=== PATIENT | male | born 1935 | race Caucasian/White ===

== ENCOUNTER 2017-11-11 11:56 | Inpatient (IN) | payer OTHER, MEDICAID ==
[2017-11-11] MEDS ORDERED: HEPARIN 10,000 UNIT/10 ML MDV (1,000 UNIT/ML) IVP ONE (13:41)
[2017-11-11] MEDS ORDERED: HEPARIN 10,000 UNIT/10 ML MDV (1,000 UNIT/ML) IVP PRN (13:41)
[2017-11-11] MEDS ORDERED: ACETAMINOPHEN 325 MG TAB PO PRN ×2 (13:42→15:34)
[2017-11-11] MEDS ORDERED: DILTIAZEM 125 MG in D5W 125 ML IV SCH (13:45)
[2017-11-11] MEDS ORDERED: TRIAMCINOLONE 0.1% 15 GM CRTUBE TP PRN (14:52)
[2017-11-11] MEDS ORDERED: TRAMADOL HCL PO PRN (14:52)
[2017-11-11] MEDS ORDERED: ACETAMINOPHEN PO PRN (14:52)
[2017-11-11] MEDS ORDERED: [UNRECOGNIZED DRUG - OTHER] PO PRN (14:52)
[2017-11-11] MEDS ORDERED: MECLIZINE HCL 12.5 MG TAB PO PRN (14:52)
[2017-11-11] MEDS ORDERED: FUROSEMIDE 20 MG/2 ML VIAL IVP ONE (14:53)
--- NOTE | 2017-11-11 15:12 | PDCARPN ---
Cardiology Progress Note Chief Complaint: AF RVR/CHF Assessment/Plan: Assessment: 82M PMH htn, CKD, hypoT, direct admit from office. Please see Dr. Liang's office note that acts as H&P (see chart). #. AF RVR: start Dilt for rate control [id number] of 3 (age and htn) start Heparin and discuss OAC choices in next days #. CHF: ? from RVR/ awaiting echo for EF assessment dose with Lasix IV once now #. CKD: last Cr measured at 1.5 recheck now #. hypoT: recent dx check TSH now #. DVTppx: hep gtt #. Diet: cardiac #. LOS: inpt for CHF management 11/11/17 14:54 Subjective: Reports dyspnea/edema. Objective: Vital Signs (8 Hrs) Temp Pulse Resp BP Pulse Ox 11/11/17 13:59 98.1 F 105 H 16 125/99 H 98 - Physical Exam Cardiovascular: irregularly irregular Respiratory: reduced air movement Gastrointestinal: normoactive bowel sounds, no tenderness Skin: other (1+ edema) ICD10 Worksheet Patient Problems: Problems Problem Status Onset Afib Acute CHF (congestive heart failure) Acute
[2017-11-11 15:16] LABS: PLATELET COUNT 269 10^3/uL (150-400)
[2017-11-11 15:31] LABS: PROTIME(PATIENT) 14.4 SEC (12.0-15.0)
[2017-11-11] MEDS ORDERED: traMADol 50 MG TAB PO PRN (15:34)
[2017-11-11] MEDS: HEPARIN/DEXTROSE 500 ML IV SCH (15:42)
--- NOTE | 2017-11-11 16:04 | ECHO ---
[email or web address] [address] [address] Main: [phone] Fax: Transthoracic Echocardiogram Name: MAGDI WOODS MR#: [id number] Study Date: 11/11/2017 Study Time: 02:02 PM Date of : 1935 Age: 82 year(s) Height: 162.6 cm (64 in.) Weight: 62.6 kg (138 lb.) BSA: 1.67 m2 Gender: Male Examination: Echo Indication: CHF Image Quality: Contrast: Requested by: Edna Palmer BP: 125 mmHg/99 mmHg Heart Rate: Rhythm: Indication: CHF Procedure Staff Flower Picker: Felicia Clarke Physician: Jay Laguerre Requesting Provider: Conclusions: Normal size left ventricle. No LV hypertrophy. Normal global systolic LV function. The ejection fraction is estimated to be 55-60 %. Mild mitral valve regurgitation is present. Mild aortic valve regurgitation is present. Mild tricuspid regurgitation is present. Trivial pulmonic valve regurgitation. Mildly dilated aortic root measuring 4.2 cm. Measurements: Chambers Valvular Assessment AV/MV Valvular Assessment TV/PV Normal Normal Normal Name Value Range Name Value Range Name Value Range Ao Jennifer (MM): 4.2 cm (2.2 cm-3.7 AV Vmax: 1.01 m/s (1 m/s-1.7 TR Vmax: 2.40 mm/s ( - ) cm) m/s) TR PGmax: 23 mmHg ( - ) IVSd (2D): 0.9 cm (0.6 cm-1.1 AV maxP mmHg ( - ) syst. PAP: 28 mmHg ( - ) cm) AR (PHT): 533 ms ( - ) LVDd (2D): 4.3 cm (4.2 cm-5.9 MV E Vmax: 1.17 m/s ( - ) cm) MV A Vmax: 0.34 m/s ( - ) LVDs (2D): 3.1 cm (2.1 cm-4 MV E/A: 3.44 ( - ) cm) LVPWd (2D): 0.8 cm (0.6 cm-1 cm) LVEF (MOD4): 64 % (>=55 %) EF Range: 55-60 % Continued Measurements: Chambers Valvular Assessment AV/MV Valvular Assessment TV/PV Patient: MAGDI WOODS Study Date: 11/11/2017 Page 1 of 2 02:02 PM Name Value Name Value Name Value LADs: 4.3 cm MV E' Septal: 0.08 m/s CVP (est.): 5 mmHg LADs Lon.3 cm MV E/E' Septal: 15.40 LA Area: 13.5 cm2 MV E/E' Lateral: 13.50 AR Vmax: 4.19 cm/s Additional Vessels Name Value Ao Ascendin.6 cm Findings: Left Ventricle: Normal size left ventricle. No LV hypertrophy. Normal global systolic LV function. The ejection fraction is estimated to be 55-60 %. No regional wall motion abnormality. Right Ventricle: Normal size right ventricle. Left Atrium: The left atrium is normal in size. Right Atrium: The right atrium is normal in size. Mitral Valve: The mitral valve is normal in appearance and function. Mild mitral valve regurgitation is present. Aortic Valve: The aortic valve is normal in appearance and function. Mild aortic valve regurgitation is present. Tricuspid Valve: The tricuspid valve is normal in appearance and function. Mild tricuspid regurgitation is present. Pulmonic Valve: Pulmonary valve not well visualized. Trivial pulmonic valve regurgitation. Aorta: The aorta is normal. Mildly dilated aortic root measuring 4.2 cm. Normal size ascending aorta measuring 3.6 cm. Pericardium: No pericardial effusion. (No Signature Object) Patient: MAGDI WOODS Study Date: 11/11/2017 Page 2 of 2 02:02 PM [id number]
[2017-11-11] MEDS ORDERED: FAMOTIDINE 20 MG TAB PO PRN (21:00)
[2017-11-11] MEDS: TEMAZEPAM 15 MG CAP PO PRN (23:33)
[2017-11-12] MEDS: LEVOTHYROXINE 175 MCG TAB PO SCH (05:56)
--- NOTE | 2017-11-12 09:44 | ASMTCASEMG ---
Living Arrangements What is your living Answers: With Child(harshil) arrangement? Who do you live with? Type Of Residence What kind of residence do Answers: House you live in? Discharge Plan Comments Coordination Status Comments Notes: Pt is a 82 y/o man admitted for CHF/AFIB. Pt lives at home w/ his daughter, son in law and . Pt has been falling more frequently. Therapies have not been ordered at this time. CM spoke w/ RAFI Bishop and requested that therapies be ordered. Needs are TBD at this time. CM to follow. Plan: TBD Date Signed: 11/12/2017 09:43 AM Electronically Signed By:LIBIA Hwang
[2017-11-12] MEDS: VITAMIN B COMPLEX 1 EA CAP/TAB PO SCH (10:19)
[2017-11-12] MEDS: TAMSULOSIN HCL 0.4 MG CAP PO SCH (10:19)
[2017-11-12] MEDS ORDERED: BISACODYL 10 MG SUPP PR PRN (15:52)
[2017-11-12] MEDS ORDERED: LACTULOSE 20 GM/30 ML UDCUP PO PRN (15:52)
[2017-11-12] MEDS ORDERED: MAGNESIUM HYDROXIDE 30 ML UDCUP PO PRN (15:52)
[2017-11-12] MEDS: POLYETHYLENE GLYCOL 3350 17 GM PKT PO PRN (17:09)
[2017-11-12] MEDS ORDERED: AMIODARONE HCL 200 ML IV ONE (17:16)
[2017-11-12] MEDS ORDERED: AMIODARONE HCL 100 ML IV ONE (17:16)
[2017-11-12] MEDS: HEPARIN/DEXTROSE 500 ML IV SCH (18:13)
--- NOTE | 2017-11-12 18:54 | PDCARPN ---
Cardiology Progress Note Chief Complaint: I am not feeling very well. Assessment/Plan: Assessment: Newly recognized and paroxysmal atrial fibrillation. The patient was placed on rate control with cardizem and converted to sinus rhythm while on Heparin drip which is therapeutic. He has by definition paroxysmal atrial fibrillation with a CHADS VASC score of at least 5 on the basis of age heart failure and diastolic dysfunction. He has been falling frequently so chronic anticoagulation will need to be considered carefully possibly with an agent that can be reversed in the event of head trauma and bleeding such as Coumadin or Pradaxa. I agree with diuresis for peripheral edema, but would like to load him with amiodarone to try to achieve normal rhythm. He could be considered for less toxic medications [facility] depending on how he does. I am hopeful he will convert on the Amiodarone overnight. His ejection fraction is normal presently. Plan: as above. the plan was discussed with the patient via the official biomedical engineering technologist device. 11/12/17 18:49 Subjective: How long do I have to stay here? Reviewed/Discussed With: family, multidisciplinary team Time Spent With Patient: 30 minutes over half of which was spent in counseling and discussing plan with patient and son in law. Objective: Vital Signs (8 Hrs) Temp Pulse Resp BP Pulse Ox 11/12/17 15:51 36.7 C 118 H 18 116/85 H 98 11/12/17 12:03 36.8 C 94 19 148/97 H 99 Intake/Output (24 Hrs) 11/11/17 11/12/17 11/13/17 05:59 05:59 05:59 Intake Total 500 883 Output Total 2000 700 Balance -1500 183 Intake: Oral (ml) 500 IV Infused (ml) 883 Amiodarone HCl 100 ml @ 100 600 mls/hr IV ONCE ONE Rx #:[id number] Diltiazem 125 mg In D5w 10 125 ml @ Per Protocol IV CONT RAMOS Rx#:[id number] Heparin/Dextrose 500 ml @ 773 Per Protocol IV CONT RAMOS Rx#:[id number] Output: Urine (ml) 2000 700 Bedside Commode 1100 700 Catheter 900 Other: Weight 63 kg Number of Voids Bedside Commode 1 Incontinence 3 Result Diagrams: 11/11/17 15:00 11/12/17 05:58 Cardiac Labs: Cardiac Lab Results (72 Hrs) 11/11/17 15:00 Troponin I < 0.012 EKG: A fib with RVR. Telemetry: a fib goes to sinus rhythm and then a fib Echocardiogram: normal ef age appropriate valve issues.... p[lease see full report as dictated by Carlotta. - Physical Exam Constitutional: no apparent distress Eyes: EOMI, anicteric sclera, No pale conjunctiva Ears, Nose, Mouth, Throat: moist mucous membranes Cardiovascular: systolic murmur, irregularly irregular, jugular vein distention , pulses symmetric bilat, other (2 plus peripheral edema with some erythema...) , No carotid bruit Respiratory: inspiratory crackles, No expiratory wheeze, No bronchial breath sounds, No aegophony, No dullness to percussion Gastrointestinal: normoactive bowel sounds, no tenderness, No ascites Skin: no rashes Neurologic: AAOx3 Psychiatric: cooperative, interactive, following commands - . Pending Discharge Within 24 Hours: No ICD10 Worksheet Patient Problems: Problems Problem Status Onset Afib Acute CHF (congestive heart failure) Acute
[2017-11-12] MEDS: SENNOSIDES/DOCUSATE SODIUM TAB PO SCH (21:47)
[2017-11-13] MEDS ORDERED: AMIODARONE HCL 540 MG in D5W 300 ML IV ONE
[2017-11-13] MEDS: LEVOTHYROXINE 175 MCG TAB PO SCH (06:07)
[2017-11-13] MEDS ORDERED: FUROSEMIDE 20 MG/2 ML VIAL IVP SCH (09:00)
--- NOTE | 2017-11-13 10:46 | PDCARPN ---
Cardiology Progress Note Assessment/Plan: Assessment/plan: 82-year-old male with history of hypertension and hypothyroidism. He was admitted directly from our office on November 11 with heart failure and atrial fibrillation. He has diuresed with IV Lasix and was initially on diltiazem but now on amiodarone. He is currently in sinus rhythm. Heparin drip has been initiated. Ejection fraction is normal. 1. Paroxysmal atrial fibrillation: Currently finishing IV amiodarone load. We will start low-dose amiodarone at 200 mg twice daily once his IV load is complete. If he does stay on amiodarone will need to be enrolled in surveillance program through our office. He will work with physical therapy today, to better assess his fall risk. His family was not present in the room today, but there should be discussion with them about fall risk/bleeding versus thromboembolic risk associated with paroxysmal atrial fibrillation. His CHADS2 Vasc score is at least 4. At this point I have initiated warfarin and will continue his heparin until his warfarin is therapeutic. 2. Heart failure with preserved ejection fraction: BNP has come down nicely from 1420 to 704. He does have some mild ankle edema but otherwise appears euvolemic. Heart failure was likely triggered by atrial fibrillation. Troponin negative. We will transition to low-dose oral Lasix tomorrow. 3. Chronic renal insufficiency. His creatinine bumped a little bit to 1.4. Transition to oral diuretics as detailed above. 4. Hypothyroidism: TSH this admission is normal. 5. Hypertension: Currently well controlled. 6. Mild valvular heart disease: This is unlikely contributing to his heart failure. 7. Dilated aortic root of 4.2 cm. This will be followed as an outpatient. Greater than 30 min was spent in chart review, direct patient care. 11/13/17 10:50 Subjective: He says his breathing is okay. He denies chest pain. He states he feels tired. He denies falling at home, but per chart review he does have a risk of falls. He states that he uses a walker at home. Objective: Vital Signs (8 Hrs) Temp Pulse Resp BP Pulse Ox 11/13/17 08:00 36.5 C 86 15 144/76 H 98 11/13/17 03:46 36.5 C 77 22 H 145/77 H 95 Intake/Output (24 Hrs) 11/12/17 11/13/17 11/14/17 05:59 05:59 05:59 Intake Total 500 1471 Output Total 1999 1250 150 Balance -1500 221 -150 Intake: Oral (ml) 500 100 IV Infused (ml) 1371 Amiodarone HCl 100 ml @ 386 600 mls/hr IV ONCE ONE Rx #:[id number] Diltiazem 125 mg In D5w 10 125 ml @ Per Protocol IV CONT RAMOS Rx#:[id number] Heparin/Dextrose 500 ml @ 975 Per Protocol IV CONT RAMOS Rx#:[id number] Output: Urine (ml) 1999 1250 150 Bedside Commode 1100 1100 150 Catheter 900 Urinal 150 Other: Weight 63 kg 62.2 kg Number of Voids Bedside Commode 1 Incontinence 3 1 No acute distress. Sitting up in chair. Slightly sleepy. JVP less than 10 cm water the patient at 90 degrees. Regular rate and rhythm without murmur rub or gallop Lungs clear bilaterally wheeze rhonchi or rales 1+ ankle edema bilaterally Result Diagrams: 11/13/17 03:26 11/13/17 03:26 Cardiac Labs: Cardiac Lab Results (72 Hrs) 11/11/17 15:00 Troponin I < 0.012 Telemetry: Sinus rhythm with PACs. ICD10 Worksheet Patient Problems: Problems Problem Status Onset Afib Acute CHF (congestive heart failure) Acute
[2017-11-13] MEDS: SENNOSIDES/DOCUSATE SODIUM TAB PO SCH ×2 (10:48→22:27)
[2017-11-13] MEDS: TAMSULOSIN HCL 0.4 MG CAP PO SCH (10:48)
[2017-11-13] MEDS: VITAMIN B COMPLEX 1 EA CAP/TAB PO SCH (10:48)
[2017-11-13] MEDS ORDERED: ERGOCALCIFEROL 50,000 I.UNIT CAP PO SCH (14:52)
[2017-11-13] MEDS: WARFARIN SODIUM 5 MG TAB PO SCH (16:30)
[2017-11-13] MEDS: AMIODARONE HCL 200 MG TAB PO SCH (22:27)
[2017-11-13] MEDS: TEMAZEPAM 15 MG CAP PO PRN (22:27)
[2017-11-14] MEDS ORDERED: AMIODARONE A.FIB-18HR INFSN (ORDER 3/3) IV ONE (04:00)
[2017-11-14 04:50] LABS: INR 1.19 (0.83-1.16); PROTIME(PATIENT) 15.3 SEC (12.0-15.0)
--- NOTE | 2017-11-14 06:03 | CPEKG ---
Heart Rate: 72 RR Interval: 833 P-R Interval: 196 QRSD Interval: 78 QT Interval: 448 QTC Interval: 491 P [place]: 63 QRS [place]: 19 T Wave [place]: 146 EKG Severity - ABNORMAL ECG - EKG Impression: SINUS RHYTHM EKG Impression: ATRIAL PREMATURE COMPLEX EKG Impression: NONSPECIFIC T ABNORMALITIES, ANT-LAT LEADS EKG Impression: BORDERLINE PROLONGED QT INTERVAL Electronically Signed By: Lenny Ferris 14-Nov-2017 08:50:24
[2017-11-14] MEDS: LEVOTHYROXINE 175 MCG TAB PO SCH (07:46)
[2017-11-14] MEDS: VITAMIN B COMPLEX 1 EA CAP/TAB PO SCH (09:55)
[2017-11-14] MEDS: FUROSEMIDE 40 MG TAB PO SCH (09:55)
[2017-11-14] MEDS: AMIODARONE HCL 200 MG TAB PO SCH ×2 (09:56→21:11)
[2017-11-14] MEDS: TAMSULOSIN HCL 0.4 MG CAP PO SCH (09:56)
[2017-11-14] MEDS: SENNOSIDES/DOCUSATE SODIUM TAB PO SCH ×2 (09:56→21:12)
[2017-11-14] MEDS ORDERED: AMIODARONE A.FIB-LOAD DOSE(ORDER 1/3) PREMIX IV ONE ×3 (11:00→22:00)
--- NOTE | 2017-11-14 13:34 | CPEKG ---
Heart Rate: 70 RR Interval: 857 P-R Interval: 156 QRSD Interval: 84 QT Interval: 448 QTC Interval: 484 P [place]: 78 QRS [place]: 6 T Wave [place]: 131 EKG Severity - ABNORMAL ECG - EKG Impression: SINUS RHYTHM EKG Impression: ABNORMAL T, CONSIDER ISCHEMIA, LATERAL LEADS EKG Impression: BORDERLINE PROLONGED QT INTERVAL Electronically Signed By: Lenny Ferris 15-Nov-2017 04:30:31
--- NOTE | 2017-11-14 13:38 | PDCARPN ---
Cardiology Progress Note Assessment/Plan: Assessment: 82-year-old male with history of hypertension and hypothyroidism. He was admitted directly from our office on November 11 with heart failure and atrial fibrillation. He has diuresed with IV Lasix and was initially on diltiazem but now on amiodarone. He is currently in sinus rhythm. Heparin drip has been initiated. Ejection fraction is normal. 1. Paroxysmal atrial fibrillation: Back in A fib today with RVR Additional 2 doses of IV amiodarone given with subsequent conversion. Continue oral Amiodarone at 200 mg twice daily for now. If he does stay on amiodarone will need to be enrolled in surveillance program through our office. He will work with physical therapy today, to better assess his fall risk. His family was not present in the room today, but there should be discussion with them about fall risk/bleeding versus thromboembolic risk associated with paroxysmal atrial fibrillation. His CHADS2 Vasc score is at least 4/5. At this point I have initiated warfarin and will continue his heparin until his warfarin is therapeutic. 2. Heart failure with preserved ejection fraction: BNP has come down nicely from 1420 to 704. He does have some mild ankle edema but otherwise appears euvolemic. Heart failure was likely triggered by atrial fibrillation. Troponin negative. We will transition to low-dose oral Lasix today. 3. Chronic renal insufficiency. His creatinine bumped a little bit to 1.4. Transition to oral diuretics as detailed above. 4. Hypothyroidism: TSH this admission is normal. 5. Hypertension: Currently well controlled. 6. Mild valvular heart disease: This is unlikely contributing to his heart failure. 7. Dilated aortic root of 4.2 cm. This will need to be followed as an outpatient. Greater than 30 min was spent in chart review, direct patient care, discussion with nurse and son. 11/14/17 13:20 Reviewed/Discussed With: family, multidisciplinary team, other (son) Objective: Vital Signs (8 Hrs) Temp Pulse Resp BP Pulse Ox 11/14/17 07:36 36.6 C 73 12 156/90 H 92 Intake/Output (24 Hrs) 11/13/17 11/14/17 11/15/17 05:59 05:59 05:59 Intake Total 1471 550 200 Output Total 1250 1750 200 Balance 221 -1200 0 Intake: Oral (ml) 100 250 IV Infused (ml) 1371 300 200 Amiodarone HCl 100 ml @ 386 600 mls/hr IV ONCE ONE Rx #:[id number] Amiodarone HCl 100 ml @ 100 600 mls/hr IV ONCE ONE Rx #:[id number] Amiodarone HCl 100 ml @ 100 600 mls/hr IV ONCE ONE Rx #:[id number] Amiodarone HCl 540 mg In 300 D5w 300 ml @ 16.667 mls/ hr IV ONCE ONE Rx#: [id number] Diltiazem 125 mg In D5w 10 125 ml @ Per Protocol IV CONT RAMOS Rx#:[id number] Heparin/Dextrose 500 ml @ 975 Per Protocol IV CONT RAMOS Rx#:[id number] Output: Urine (ml) 1250 1750 200 Bedside Commode 1100 1050 200 Urinal 150 700 Other: Weight 62.2 kg 58.513 kg Intake Quantity Yes Sufficient Number of Voids Bedside Commode 1 2 4 Incontinence 1 1 Urinal 3 Number of Stools Urinal 2 Result Diagrams: 11/13/17 03:26 11/14/17 03:29 Cardiac Labs: Cardiac Lab Results (72 Hrs) 11/11/17 15:00 Troponin I < 0.012 Telemetry: afib with RVR and then sinus rhythm Echocardiogram: Previously reviewed see official result - Physical Exam Constitutional: no apparent distress Eyes: PERRL, EOMI, No anicteric sclera Cardiovascular: irregularly irregular Respiratory: no crackles Gastrointestinal: normoactive bowel sounds, no tenderness, no masses Skin: other (edema mild at ankle level likely best ddescribed as 1+) ICD10 Worksheet Patient Problems: Problems Problem Status Onset Afib Acute CHF (congestive heart failure) Acute
[2017-11-14] MEDS: WARFARIN SODIUM 5 MG TAB PO SCH (17:32)
[2017-11-14] MEDS: POLYETHYLENE GLYCOL 3350 17 GM PKT PO PRN (21:11)
[2017-11-14] MEDS: TEMAZEPAM 15 MG CAP PO PRN (21:12)
[2017-11-14] MEDS ORDERED: AMIODARONE A.FIB-6HR INFSN (ORDER 2/3) PREMIX IV ONE (22:00)
[2017-11-15 03:16] LABS: INR 1.26 (0.83-1.16)
[2017-11-15] MEDS ORDERED: AMIODARONE A.FIB-18HR INFSN (ORDER 3/3) IV ONE (04:00)
[2017-11-15] MEDS: LEVOTHYROXINE 175 MCG TAB PO SCH (04:19)
[2017-11-15] MEDS: HEPARIN/DEXTROSE 500 ML IV SCH (09:46)
[2017-11-15] MEDS: SENNOSIDES/DOCUSATE SODIUM TAB PO SCH ×2 (09:46→20:19)
[2017-11-15] MEDS: AMIODARONE HCL 200 MG TAB PO SCH ×2 (09:46→20:19)
[2017-11-15] MEDS: FUROSEMIDE 40 MG TAB PO SCH (09:46)
[2017-11-15] MEDS: TAMSULOSIN HCL 0.4 MG CAP PO SCH (09:47)
[2017-11-15] MEDS: VITAMIN B COMPLEX 1 EA CAP/TAB PO SCH (09:48)
[2017-11-15] MEDS ORDERED: FUROSEMIDE 20 MG TAB PO ONE (11:37)
[2017-11-15] MEDS ORDERED: FAMOTIDINE 20 MG TAB PO PRN (12:00)
[2017-11-15] MEDS ORDERED: PNEUMOC 13-VAL CONJ-DIP CRM/PF 0.5 ML SYR IM ONE (12:12)
[2017-11-15] MEDS ORDERED: POTASSIUM CL 20 MEQ TAB PO ONE (15:45)
--- NOTE | 2017-11-15 16:39 | ASMTCMCOM ---
CM Note CM Note Notes: Spoke with patient's son in law Tiffany about recommendations for home care. He is amenable to this and feels it's very important. Someone from the family will be with patient 24/05 after discharge. I called and left a message for [facility] referring patient for RN/PT/OT. Date Signed: 11/15/2017 04:38 PM Electronically Signed By:Kennedi Ball RN
--- NOTE | 2017-11-15 16:50 | PDCARPN ---
Cardiology Progress Note Chief Complaint: Patient reports he would like to go home. Assessment/Plan: Assessment: 82-year-old male with history of hypertension and hypothyroidism. Direct admit from our office on 11/11/2017 with heart failure in atrial fibrillation. Initially IV diuresed, and has been transitioned over to oral Lasix 11/12/2017. Persistent atrial fibrillation, attempted initially on diltiazem, but transition to amiodarone. Heparin drip initiated for anticoagulation. Echo done on 11/11/2017 showing normal LV global systolic function, EF 55-60%, mild MR , mild AI, mild TR, trivial [place], mildly dilated aortic root measuring at 4.2 cm. Today, patient's weight is up despite output greater than input. Laboratory studies showing decreased sodium of 131, potassium 3.7, chloride 96, CO2 21, INR 1.26. JVD 4-5 cm noted on physical examination, no rales noted in bases. Patient noted to have breakthrough atrial fibrillation last evening, started on full IV amiodarone drip protocol, converted soon afterwards back to sinus rhythm. No malignant arrhythmias noted on monitoring. Patient denies of any chest pain or pressure. Continues to feel weak, but improvement in shortness of breath. Plan: 1. Paroxysmal atrial fibrillation: Currently in sinus rhythm , IV amiodarone completed, continue on oral dosing of amiodarone 200 mg p. o. twice daily for the next week. Discussed with his son-in-law anticoagulation therapy in the risk. They verbalize understanding. Patient does have a significant chads Vasc score of 4, remains on IV heparin with plans of discontinue in once his INRs reach therapeutic, has been started on warfarin therapy. 2. Diastolic heart failure: BMP has significantly reduced since with maintaining sinus rhythm , night IV diuresis. Appears to be more fluid overloaded today, changed his oral dosage of Lasix to 60 mg. Repeat BMP in a.m.. Potassium supplement given. 3. Chronic renal insufficiency: Maintaining between 1.3 and 1.4 for during this hospitalization. 4. Hypothyroidism: TSH within normal limits. Continue on home dosage of Synthroid. 5. Valvular heart disease: Mild on recent echocardiogram. Medication management as above. 6. Hypertension: Mildly elevated, recent discontinuation of home losartan, if renal function remained stable, consideration restarting tomorrow. Continue to monitor. 7. Dilated aortic root at 4.2 cm. Patient will need a repeated limited echocardiogram in 6 months time for repeat evaluation. 8. Hyponatremia: Sodium low at 131, fluid restriction in the setting of heart failure. 8. DVT prophylaxis: Patient is on heparin drip , been started on warfarin. 11/15/17 16:49 Subjective: Patient denies of any chest pain, palpitations, lightheadedness, near-syncope, or syncopal events. Reports shortness of breath with exertion and fatigue. Reviewed/Discussed With: family (Son-In-Law), other (Dr Goff and Dr Cowart) Objective: Vital Signs (8 Hrs) Temp Pulse Resp BP Pulse Ox 11/15/17 15:49 36.5 C 76 18 148/72 H 99 11/15/17 12:00 64 98 Intake/Output (24 Hrs) 11/14/17 11/15/17 11/16/17 05:59 05:59 05:59 Intake Total 550 1680.2 Output Total 1750 2550 100 Balance -1200 -869.8 -100 Intake: Oral (ml) 250 950 IV Intake (ml) 33.4 IV Infused (ml) 300 696.8 Amiodarone HCl 100 ml @ 300 600 mls/hr IV ONCE ONE Rx #:[id number] Amiodarone HCl 100 ml @ 200 600 mls/hr IV ONCE ONE Rx #:[id number] Amiodarone HCl 540 mg In 300 D5w 300 ml @ 16.667 mls/ hr IV ONCE ONE Rx#: [id number] Heparin/Dextrose 500 ml @ 196.8 Per Protocol IV CONT RAMOS Rx#:[id number] Output: Urine (ml) 1750 2550 100 Bedside Commode 1050 2250 100 Urinal 700 300 Other: Weight 58.513 kg 62.8 kg Intake Quantity Yes Sufficient Number of Voids Bedside Commode 2 2 1 Incontinence 1 1 Urinal 3 2 Number of Stools Bedside Commode 1 Urinal 2 Result Diagrams: 11/16/17 03:33 11/16/17 03:33 - Physical Exam Constitutional: WDWN, no apparent distress, other (Elderly male) Ears, Nose, Mouth, Throat: moist mucous membranes Cardiovascular: regular rate and rhythm, no murmurs, no rubs, jugular vein distention (5-6 cm above sternal notch), pulses symmetric bilat, No carotid bruit Peripheral Pulses: 1+: dorsalis-pedis (R), dorsalis-pedis (L), 2+: carotid (R), carotid (L) Respiratory: other (Lungs are clear but diminished in bases bilateral, no rhonchi, rales, or wheezing noted.) Gastrointestinal: normoactive bowel sounds Skin: no rashes, warm, No no edema (Trace pedal edema bilateral lower extremities) Neurologic: AAOx3 Psychiatric: cooperative, interactive, following commands, not anxious ICD10 Worksheet Patient Problems: Problems Problem Status Onset Afib Acute CHF (congestive heart failure) Acute
[2017-11-15] MEDS: WARFARIN SODIUM 5 MG TAB PO SCH (17:00)
[2017-11-15] MEDS: TEMAZEPAM 15 MG CAP PO PRN (20:19)
[2017-11-16 04:47] LABS: INR 1.94 (0.83-1.16); PROTIME(PATIENT) 22.2 SEC (12.0-15.0)
[2017-11-16] MEDS: LEVOTHYROXINE 175 MCG TAB PO SCH (06:07)
[2017-11-16] MEDS ORDERED: FUROSEMIDE 40 MG TAB PO SCH ×2 (09:00)
[2017-11-16] MEDS: AMIODARONE HCL 200 MG TAB PO SCH (09:41)
[2017-11-16] MEDS: VITAMIN B COMPLEX 1 EA CAP/TAB PO SCH (09:41)
[2017-11-16] MEDS: TAMSULOSIN HCL 0.4 MG CAP PO SCH (09:41)
[2017-11-16] MEDS: SENNOSIDES/DOCUSATE SODIUM TAB PO SCH (09:42)
[2017-11-16] MEDS ORDERED: LOSARTAN POTASSIUM 25 MG TAB PO SCH (11:00)
[2017-11-16 11:29] VITALS: BP 118/57; PULSE 77; RESP 20; TEMP 97.8; O2SAT 97
--- NOTE | 2017-11-16 11:54 | PDIAF ---
- Diagnosis Code Status: Full Code - Medication Management Discharge Medications: Medications to Continue on Transfer Ergocalciferol [Vitamin D2 (*)] 50,000 unit PO SA 11/11/17 [Last Taken Unknown] Levothyroxine [Synthroid 175 mcg (*)] 175 mcg PO DAILY06 11/11/17 [Last Taken Unknown] Meclizine HCl [Meclizine HCl 12.5 mg (*)] 12.5 mg PO BID PRN 11/11/17 [Last Taken Unknown] Ranitidine HCl [Zantac] 150 mg PO BID PRN 11/11/17 [Last Taken Unknown] Tamsulosin HCl [Flomax 0.4 MG (*)] 0.4 mg PO DAILY 11/11/17 [Last Taken Unknown] Tramadol HCl/Acetaminophen [Tramadol-Acetaminophn 37.5-325] 1 each PO DAILY PRN 11/11/17 [Last Taken Unknown] Triamcinolone 0.1% [Triamcinolone 0.1% Cream (*)] 1 haider TP TID PRN 11/11/17 [ Last Taken Unknown] Vitamin B Complex [B Complex] 1 each PO DAILY 11/11/17 [Last Taken Unknown] Acetaminophen [Tylenol 325mg (*)] 325 mg PO DAILY PRN tab 11/16/17 [Last Taken Unknown] Amiodarone HCl [Pacerone (*)] 200 mg PO BID #60 tab 11/16/17 [Last Taken Unknown ] Furosemide [Lasix 40 MG (*)] 40 mg PO DAILY #30 tab 11/16/17 [Last Taken Unknown ] Losartan Potassium [Cozaar 25 mg (*)] 25 mg PO DAILY #30 tab 11/16/17 [Last Taken Unknown] Warfarin Sodium [Coumadin 2.5MG (*)] 2.5 mg PO DAILY16 #30 tab 11/16/17 [Last Taken Unknown] Discharge Medications: Refer to the Discharge Home Medication list for PRN reason. - Orders Services needed: Home Care, Physical Therapy, Occupational Therapy Home Care Face to Face: I certify that this patient was under my care and that I had the required [id number]-wl-odxy encounter meeting the encounter requirements on the discharge day. My findings support the fact that the patient is homebound as defined in Home Care Face to Face Continued: CMS Chapter 7 Medicare Benefits Manual 30.1.1 , The condition of the patient is such that there exists a normal inability to leave home and consequently, leaving home would require a considerable and taxing effort. Diet Recommendation: cardiac -low fat low salt - Labs/Radiology BMP Date: 11/18/17 (Call to [facility]) PT/INR Date: 11/18/17 (Call to [facility]) - Follow Up Care Current Providers and Referrals: Aaron Fish MD [Primary Care Provider] - Major Lopez MD [Medical Doctor] - (Follow-up appointment on November [address] Jimenez at 1:45 p.m.)
[2017-11-16] MEDS ORDERED: WARFARIN SODIUM 2.5 MG TAB PO ONE (16:00)
--- NOTE | 2017-11-17 03:34 | GDS ---
[f rep st] DISCHARGE SUMMARY ADMISSION DIAGNOSES: 1. Persistent atrial fibrillation. 2. Congestive heart failure. 3. Hypertension. 4. Hypothyroidism. DISCHARGE DIAGNOSES: 1. Paroxysmal atrial fibrillation. 2. Diastolic heart failure. 3. Chronic renal insufficiency. 4. Hypothyroidism. 5. Valvular heart disease. 6. Hypertension. 7. Dilated aortic root (measuring 4.2 cm). PROCEDURES PERFORMED DURING HOSPITALIZATION: 1. Electrocardiogram. 2. Echocardiogram. 3. Chest x-ray. HISTORY: Please see H and P, the patient is an 82-year-old male, who presented to our [place] office, seen by Dr. Liang. He had been reporting approximately 3-4 months of fatigue. He had seen his PCP, Dr. Fish, and was referred to [facility] for further evaluation. It was noted that he was in atrial fibrillation with rapid ventricular response, and appeared to have symptoms of heart failure. At that time, Dr. Liang decided due to his condition, he be sent to the hospital for direct admission and further evaluation. HOSPITAL COURSE: Patient was admitted through direct admission to PCU, on November 11. There his initial laboratory studies were done. He was noted to have a mildly elevated BNP of 1420. TSH was within normal limits. Troponin was less than 0.012. Patient reporting no history of chest pain or shortness of breath. He did undergo echocardiogram which showed no LVH, normal global systolic function, EF 55% to 60%, mild MR, mild AI, mild TR, trivial NH, mildly dilated aortic root at 4.2 cm. He was started on IV diuresis, and due to his rapid ventricular response to atrial fibrillation, started on a diltiazem drip. Also, due to his significant CHADS-VASc score, a heparin drip was also started. On the following morning, the , he did undergo chest x-ray, which showed mild airway disease, but no acute CHF. He was continued on IV diuretics through the , with adequate diuresis. By the , his BNP was noted to be down to 667. His atrial fibrillation was difficult to control. He initially was given 2 IV boluses of amiodarone, along with diltiazem and then started on PO amiodarone, but by the evening of the , he continued having breakthrough , in which occasionally he spontaneously converted back to sinus rhythm, but continued to have breakthrough arrhythmias of atrial fibrillation and at that time, diltiazem was discontinued, and he was IV loaded with amiodarone. Also, he was started on warfarin therapy, due to his significant CHADS-VASc score. As of the last 24 hours, his IV amiodarone drip has been discontinued. He has been restarted on oral amiodarone, which we will for him to take 200 mg p.o. twice daily. He has been maintaining sinus rhythm, except for rare breakthrough atrial fibrillation last evening that lasted for a few seconds. He denies any chest pain or pressure. Reporting no significant shortness of breath. He has been continued on oral Lasix. His weight from admission is down approximately 4.5 kg. He was noted to have a mildly elevated creatinine on admission of 1.4. As of today, it was 1.5, and his oral diuretics have been decreased. PHYSICAL EXAMINATION: GENERAL: Today, showing a thin, elderly male. He is alert and oriented to person, place, time, and situation. Appears to be under no acute distress. VITAL SIGNS: His current blood pressure is 118/57, his heart rate is 77 sinus rhythm, respirations are 20, saturating 97% on room air. Temperature of 36.6 degrees Celsius. HEENT: Head is normocephalic. Lips and tongue are pink and moist with no signs of cyanosis. Conjunctivae pink. NECK: Trachea is midline. +2 carotid pulses bilateral. No auscultated bruits. No significant jugular vein distention. LUNGS: Diminished in bases, but no rhonchi, rales, or wheezes noted. No accessory muscle use. No intercostal muscle retraction noted. CARDIAC: Regular rate, regular rhythm, S1 , S2, no S3, S4, gallops, rubs, or murmurs noted. ABDOMEN: Soft, nontender, bowel sounds x4 quadrants. No organomegaly. No palpable masses. SKIN: [place], warm, dry, no cyanosis, no clubbing, no peripheral edema. VASCULAR: +2 carotids bilateral, +2 radials bilateral, +1 posterior tibial pulses bilateral. LABORATORY STUDIES: Most current laboratory studies drawn today show WBC of 9.65, hemoglobin of 15.4, hematocrit of 42.6, platelet count of 233. His INR is 1.94. Sodium 135, potassium 4.3, chloride 101, CO2 21, BUN 27, creatinine 1.5, glucose 87, calcium 8.8, magnesium 2.0. STUDIES: Echocardiogram and chest x-ray as mentioned above. Last electrocardiogram done on November 14 showing sinus rhythm, nonspecific T-wave abnormalities in lateral leads. DISCHARGE DISPOSITION: Patient will be discharged home, with the arrangement of home health care including physical therapy, nursing, and occupational therapy. DISCHARGE MEDICATIONS: Please see discharge medication reconciliation sheet. Note that patient will be planned on keeping on amiodarone 200 mg p.o. twice daily for the next week until he is seen in our office. He has been started on Lasix at 40 mg p.o. daily. He has also been started on warfarin therapy at 2.5 mg p.o. daily. His regular home dosage of losartan has been cut back to 25 mg p.o. daily. DISCHARGE INSTRUCTIONS: Discharge instructions for paroxysmal atrial fibrillation, with new anticoagulation therapy went over with both patient, I have also spoken to his son-in-law, and discussed this with him also. They are in agreement. I have asked the patient to monitor his weight on a daily basis. He is to notify our office if he gains more than 2 pounds in a day or 5 pounds in a week. As mentioned above, his discharge weight was 58.5 kg. We have discussed the importance of decreased sodium diet, monitoring fluid intake , and medication compliancy. As for his INRs, home health will draw a repeated INR on of this week, our office Coumadin nursing team will make adjustments to his medications until he is out of home health care, then he will be transitioned to [facility]. As for his renal insufficiency, we will also repeat a BMP on him on to evaluate his kidney function. He has a followup visit set with Dr. Joseph in 1 weeks' time. At the time of discharge, patient and his family verbalized understanding and have no questions. They have been told that if any problems or concerns come up post discharge, they are to call our office or return to the hospital. Total time spent on discharge greater than 30 minutes. /[id number]/MODL MTDD
--- NOTE | 2017-11-17 15:54 | ASDISCHSUM ---
Discharge Information Plan Status:Home with Home Health Medically Cleared to Leave:11/15/2017 Discharge Date:11/16/2017 06:05 PM CM D/C Disposition: ADT D/C Disposition:Home Health Service Projected Discharge Date:11/16/2017 11:00 AM Transportation at D/C: Discharge Delay Reason: Follow-Up Date:11/16/2017 11:00 AM Discharge Slot: Final Diagnosis: Placement Information Referral Type:*Home Health Care Services Referral ID:[id number] Provider Name:[facility] Care Address 1:[address] [place] [address] Address 2: City:[place] Selection Factors: State:[place] Patient Contact Information Contact Name:HUNTERSHIRASAVANAHBrittney Relationship:Other Address:[address] [place] [address] City:[place] Alternate Phone: State/Zip Code:[place] [address] Email: Financial Information Financial Class: Primary Plan Desc:MEDICARE IP PART B ONLY Primary Plan Number:[id number] Secondary Plan Desc:MEDICA[place] Secondary Plan Number:[id number] Assessment Information [facility] Initial CM Assessment Living Arrangements What is your living Answers: With Child(harshil) arrangement? Who do you live with? Type Of Residence What kind of residence do Answers: House you live in? Discharge Plan Comments Coordination Status Comments Notes: Pt is a 82 y/o man admitted for CHF/AFIB. Pt lives at home w/ his daughter, son in law and . Pt has been falling more frequently. Therapies have not been ordered at this time. CM spoke w/ RAFI Bishop and requested that therapies be ordered. Needs are TBD at this time. CM to follow. Plan: TBD Date Signed: 11/12/2017 09:43 AM Electronically Signed By:LIBIA Hwang [facility] Progress Note CM Note Note Notes: Spoke with patient's son in law Allen about recommendations for home care. He is amenable to this and feels it's very important. Someone from the family will be with patient 24/05 after discharge. I called and left a message for [facility] referring patient for RN/PT/OT. Date Signed: 11/15/2017 04:38 PM Electronically Signed By:Kennedi Ball RN Case Management Discharge Plan Note Case Management Discharge Discharge Order Complete? Answers: Yes Patient to Obtain Answers: via Family Medications Transportation Arranged Answers: Family/Friends EMTALA Complete Answers: No Case Management Transport Answers: No Form Complete Faxed Final Orders Answers: Yes Agency/Facility Transfer Answers: Yes Report Printed & Faxed to Receiving Agency Family Notified Answers: Yes Discharge Comments Notes: Pt is being discharged today. notified [facility] and they are able to follow. provided JEVON Larson phone number to give report to [facility]. called pts son in and notified him of pts discharge. Pts daughter will be coming to pick pt up. available for changes. Plan: BC, PT and OT Date Signed: 11/16/2017 02:09 PM Electronically Signed By:LIBIA Hwang Intervention Information
== END 2017-11-16 18:05 | disposition home health service (06) | DRG 309 ==
LOC: F2W 13:28
PROVIDERS: ADMIT Internal Medicine Cardiovascular Disease; ATTEND Internal Medicine Cardiovascular Disease
DX: I48.0 Paroxysmal atrial fibrillation (principal); I13.0 Hypertensive heart and chronic kidney disease with heart failure and stage 1 through stage 4 chronic kidney disease, or unspecified chronic kidney disease; I50.30 Unspecified diastolic (congestive) heart failure; N18.9 Chronic kidney disease, unspecified; E03.9 Hypothyroidism, unspecified; I77.819 Aortic ectasia, unspecified site; Z23 Encounter for immunization
CPT/HCPCS: 85520-90; 97116-GP; 97161-GP; 97165-GO; 97535-GO; G0009; G8978-GP-CK; G8979-GP-CI; G8987-GO-CL; G8988-GO-CJ; J0282; J1644; J1940

== ENCOUNTER → 2018-03-11 | Outpatient (CLI) | payer OTHER, MEDICAID | LOC: BHFA 09:15 | PROVIDERS: ATTEND Internal Medicine Cardiovascular Disease | DX: I48.91 Unspecified atrial fibrillation (principal); R06.02 Shortness of breath; I50.32 Chronic diastolic (congestive) heart failure; R05 Cough; R60.9 Edema, unspecified ==

== ENCOUNTER → 2018-09-02 | Outpatient (CLI) | payer OTHER, MEDICAID | LOC: CIMAGING 15:53 | PROVIDERS: ATTEND Family Medicine | DX: N28.1 Cyst of kidney, acquired (principal) | CPT/HCPCS: 76770-PO ==

== ENCOUNTER 2019-04-06 13:34 | Inpatient (IN) | payer OTHER, MEDICAID | END 2019-04-19 20:34 | disposition E | LOC: F2N 04-09 15:03 → F2W 16:45 ==